=== PATIENT | male | born 1955 | race African-American/Black ===

== ENCOUNTER 2019-02-17 21:12 | Emergency (ER) | payer BC, OTHER ==
[~2019-02-17] VITALS: Ht 182.9 cm; Wt 113.0 kg
[2019-02-17] MEDS ORDERED: ASPIRIN 81MG TABLET PO ONE (21:45)
[2019-02-17] MEDS ORDERED: FUROSEMIDE 40MG/4ML VIAL IVP ONE ×2 (22:30→23:30)
[2019-02-17 22:55] LABS: EOSINOPHILS % 0.6 % (0.0-5.0); HEMATOCRIT. 40.3 % (42.0-52.0); HEMOGLOBIN. 13.2 g/dL (14.0-18.0); LYMPHOCYTES % 29.4 % (20.0-50.0); MEAN CORPUSCULAR HEMOGLOBIN 30.5 pg (28.0-32.0); MEAN CORPUSCULAR VOLUME 93.3 fL (80.0-94.0); MEAN PLATELET VOLUME 11.3 fl (7.4-10.4); PLATELET 159 x1000/uL (130-400); RED BLOOD CELL COUNT 4.32 mill/uL (4.7-6.1); RED CELL DISTRIBUTION WIDTH 18.9 % (11.6-14.6)
[2019-02-17 22:58] LABS: INR 1.1; PROTHROMBIN TIME 10.9 sec (9.6-11.0)
[2019-02-17 22:59] LABS: CHLORIDE 110 mEq/L (98-107)
[2019-02-17 23:03] LABS: ETHANOL BLOOD < 10 mg/dL
[2019-02-17] MEDS ORDERED: NITROGLYCERIN OINT 1GM/INCH UDPKT TD ONE (23:30)
[2019-02-17] MEDS ORDERED: HEPARIN 25,000 UNITS PREMIX 500 ML IV SCH (23:45)
[2019-02-17] MEDS ORDERED: ASPIRIN 81MG TABLET PO SCH (23:45)
[2019-02-18] MEDS ORDERED: CLONIDINE 0.2MG TABLET PO ONE (01:15)
[2019-02-18 02:29] LABS: CLARITY URINE CLEAR (CLEAR); COLOR URINE YELLOW (YELLOW); KETONES URINE NEGATIVE (NEGATIVE); LEUKOCYTE ESTERASE URINE NEGATIVE (NEGATIVE); NITRITE URINE NEGATIVE (NEGATIVE); OCCULT BLOOD URINE NEGATIVE (NEGATIVE); PH URINE 6.5 (4.5-8.0); PROTEIN URINE 2+ (NEGATIVE); SPECIFIC GRAVITY URINE 1.011 (1.005-1.030); UROBILINOGEN URINE 0.2 E.U./dL (0.2-1.0)
[2019-02-18 02:39] LABS: *AMPHETAMINES SCREEN URINE NEGATIVE (NEGATIVE); *BARBITURATES SCREEN URINE NEGATIVE (NEGATIVE); *BENZODIAZEPINES SCREEN URINE NEGATIVE (NEGATIVE); *COCAINE SCREEN URINE NEGATIVE (NEGATIVE); METHADONE URINE SCREEN NEGATIVE (NEGATIVE)
[2019-02-18 02:40] LABS: CANNABINOID URINE SCREEN NEGATIVE (NEGATIVE); OPIATES URINE SCREEN NEGATIVE (NEGATIVE); PHENCYCLIDINE URINE SCREEN NEGATIVE (NEGATIVE)
[2019-02-18] MEDS ORDERED: LABETALOL 5MG/ML SYR 20 MG/4 ML SYRINGE IV SCH (02:45)
[2019-02-18 04:24] VITALS: BP 148/108
== END 2019-02-18 06:27 | disposition short-term general hospital (02) ==
LOC: ER 21:12 → CANBEDREQ 02-18 07:29
DX: I20.0 Unstable angina (principal); I11.0 Hypertensive heart disease with heart failure; I50.9 Heart failure, unspecified; I26.99 Other pulmonary embolism without acute cor pulmonale; H53.8 Other visual disturbances; E11.9 Type 2 diabetes mellitus without complications; F17.210 Nicotine dependence, cigarettes, uncomplicated; Z86.73 Personal history of transient ischemic attack (TIA), and cerebral infarction without residual deficits; Z98.890 Other specified postprocedural states
CPT/HCPCS: 36415; 70450; 71045; 80053; 80305; 80320; 81003; 82962; 83690; 83880; 84484; 85025; 85610; 85730; 93005; 96365; 96375; 99291; 99406; J1644; J1940; J3490; Z7610; G0480